=== PATIENT | male | born 1970 | race Caucasian/White ===

== ENCOUNTER 2016-10-20 10:54 | Emergency (ER) | payer MEDICARE, OTHER ==
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
[~2016-10-20 10:54] MED LIST: BACTRIM DS TABL1 TA1 PO; DIAZEPAM PO; FLEXERIL10 MG PO; HYDROCODON-ACE1 EAC9 PO; IBUPROFEN PO; IBUPROFEN800 MG PO; KEFLEX500 M1 PO; KETOPROFEN PO; KLONOPIN PO; LORTAB 5/500 TA1 TA1 PO; LORTAB 7.5-5001 TAB PO; NEURONTIN PO; NO MEDICATIONS; PEN-VEE K PO; PREDNISONE PO; ROBAXIN500 MG PO; TRAMADOL HCL50 M1 PO; ULTRAM PO; VALIUM10 MG; VICODIN PO; VOLTAREN75 MG; VOLTAREN75 MG PO
== END 2016-10-20 12:25 | disposition home or self-care (01) ==
LOC: CED 10:54
DX: Z76.5 Malingerer [conscious simulation] (principal)
CPT/HCPCS: 72100; 99282